=== PATIENT | male | born 1975 ===

== ENCOUNTER 2021-01-10 10:27 | Outpatient (REF) | payer OTHER, SELFPAY ==
[2021-01-10 10:31] LABS: MANUAL DIFF FLAG NO
[2021-01-10 11:00] LABS: Basophils Percent Auto 0.3 %; Eosinophils Absolute Auto 0.2 X10*3/uL; Eosinophils Percent Auto 2.6 %; Hematocrit 43.6 %; Hemoglobin 15.2 g/dl; Imm Gran Abs Auto 0.02 X10*3/uL (0.00-0.03); Imm Gran Pct Auto 0.3 % (0.0-0.4); Lymphocytes Absolute Auto 2.8 X10*3/uL; Lymphocytes Percent Auto 48.1 %; Mean Corpuscular HGB Conc 34.9 g/dl; Mean Corpuscular Hemoglobin 29.7 pg; Mean Corpuscular Volume 85.2 fL; Mean Platelet Volume 9.9 fL (9.4-12.4); Monocytes Absolute Auto 0.4 X10*3/uL; Monocytes Percent Auto 7.2 %; Neutrophils Absolute Auto 2.43 x10*3/uL; Neutrophils Percent Auto 41.5 %; Platelet Count 238 X10*3/uL; Red Blood Count 5.12 X10*6/uL; Red Cell Distribution Width 12.4 % (11.0-16.0); White Blood Count 5.9 X10*3/uL
[2021-01-10 11:24] LABS: Appearance Urine CLEAR; Color Urine YELLOW; Glucose Urine UA NEG (NEG); Leukocyte Esterase Urine NEG (NEG); Nitrite Urine NEG (NEG); Urine Blood NEG (NEG); Urine Ketones NEG (NEG); Urine Protein NEG (NEG-TRACE)
[2021-01-10 11:39] LABS: Alanine Aminotransferase 26 U/L; Albumin Level 4.4 g/dL; Alkaline Phosphatase 65 U/L; Anion Gap 11; Aspartate Amino Transferase 20 U/L; Bilirubin Total 0.6 mg/dL; Blood Urea Nitrogen 12 mg/dL; Calcium 9.4 mg/dL; Carbon Dioxide 28 mmol/L; Chloride 104 mmol/L; Cholesterol 204 mg/dL; Estimated Glomerular Filt Rate > 60; Glucose Fasting 127 mg/dL; HDL Cholesterol 27 mg/dL; LDL Cholesterol Calculated 123 mg/dl; Sodium 139 mmol/L; Total Protein 6.8 g/dL; Triglycerides 272 mg/dL
[2021-01-10 12:06] LABS: PSA,Total (Free>4and<10) 0.93 ng/mL
== END 2021-01-10 10:28 | disposition home or self-care (01) ==
LOC: HO.LNP 10:27
PROVIDERS: Visit Provider Internal Medicine
DX: Z00.00 Encounter for general adult medical examination without abnormal findings (principal); Z12.5 Encounter for screening for malignant neoplasm of prostate; I10 Essential (primary) hypertension
CPT/HCPCS: 80053; 80061; 81003; 84153; 85025

== ENCOUNTER 2021-04-25 10:45 | Outpatient (REF) | payer OTHER, SELFPAY ==
[2021-04-25 10:48] LABS: MANUAL DIFF FLAG NO
[2021-04-25 11:28] LABS: Basophils Percent Auto 0.4 %; Eosinophils Absolute Auto 0.2 X10*3/uL; Eosinophils Percent Auto 2.4 %; Hematocrit 44.9 %; Hemoglobin 15.2 g/dl; Imm Gran Abs Auto 0.01 X10*3/uL (0.00-0.03); Imm Gran Pct Auto 0.1 % (0.0-0.4); Lymphocytes Absolute Auto 2.9 X10*3/uL; Lymphocytes Percent Auto 43.3 %; Mean Corpuscular HGB Conc 33.9 g/dl; Mean Corpuscular Hemoglobin 29.3 pg; Mean Corpuscular Volume 86.7 fL; Mean Platelet Volume 9.9 fL (9.4-12.4); Monocytes Absolute Auto 0.5 X10*3/uL; Monocytes Percent Auto 6.6 %; Neutrophils Absolute Auto 3.2 x10*3/uL; Neutrophils Percent Auto 47.2 %; Platelet Count 239 X10*3/uL; Red Blood Count 5.18 X10*6/uL; Red Cell Distribution Width 12.4 % (11.0-16.0); White Blood Count 6.8 X10*3/uL
== END 2021-04-25 10:46 | disposition home or self-care (01) ==
LOC: HO.LNP 10:45
PROVIDERS: PCP Internal Medicine; Visit Provider Internal Medicine
DX: D72.820 Lymphocytosis (symptomatic) (principal)
CPT/HCPCS: 85025

== ENCOUNTER 2022-01-09 11:13 | Outpatient (REF) | payer OTHER, SELFPAY ==
[2022-01-09 11:18] LABS: MANUAL DIFF FLAG NO
[2022-01-09 11:39] LABS: Basophils Percent Auto 0.3 %; Eosinophils Absolute Auto 0.1 X10*3/uL; Eosinophils Percent Auto 1.9 %; Hemoglobin 14.7 g/dl; Imm Gran Abs Auto 0.02 X10*3/uL (0.00-0.03); Imm Gran Pct Auto 0.3 % (0.0-0.4); Lymphocytes Absolute Auto 2.8 X10*3/uL; Lymphocytes Percent Auto 39.4 %; Mean Corpuscular HGB Conc 34.2 g/dl; Mean Corpuscular Hemoglobin 29.3 pg; Mean Corpuscular Volume 85.8 fL; Mean Platelet Volume 9.7 fL (9.4-12.4); Monocytes Absolute Auto 0.5 X10*3/uL; Monocytes Percent Auto 6.6 %; Neutrophils Absolute Auto 3.6 x10*3/uL; Neutrophils Percent Auto 51.5 %; Platelet Count 243 X10*3/uL; Red Blood Count 5.01 X10*6/uL; Red Cell Distribution Width 12.8 % (11.0-16.0)
[2022-01-09 11:45] LABS: Appearance Urine Clear; Color Urine Yellow; Glucose Urine UA Negative (Negative); Leukocyte Esterase Urine Negative (Negative); Nitrite Urine Negative (Negative); PH 5.5 (5.0-9.0); Specific Gravity - Urine 1.025 (1.005-1.025); Urine Blood Negative (Negative); Urine Ketones Negative (Negative); Urine Protein Negative (Neg-Trace)
[2022-01-09 11:54] LABS: Alanine Aminotransferase 31 U/L; Albumin Level 4.4 g/dL; Alkaline Phosphatase 69 U/L; Anion Gap 14; Aspartate Amino Transferase 18 U/L; Bilirubin Total 0.5 mg/dL; Blood Urea Nitrogen 17 mg/dL; Calcium 9.1 mg/dL; Carbon Dioxide 26 mmol/L; Chloride 105 mmol/L; Cholesterol 211 mg/dL; Estimated Glomerular Filt Rate > 60; Glucose Fasting 135 mg/dL; HDL Cholesterol 35 mg/dL; LDL Cholesterol Calculated 135 mg/dl; Potassium 4.3 mmol/L; Sodium 141 mmol/L; Total Protein 6.9 g/dL; Triglycerides 205 mg/dL
[2022-01-09 12:06] LABS: Bacteria Urine None Seen (None Seen); Hyaline Casts Urine 0-2 /LPF (0-2); Squamous Epithelial Cell Urine 0-2 /HPF (0-2); WBC Urine 0-5 /HPF (0-5)
[2022-01-09 12:16] LABS: PSA,Total (Free>4and<10) 0.65 ng/mL
== END 2022-01-09 11:14 | disposition home or self-care (01) ==
LOC: HO.LNP 11:13
PROVIDERS: Visit Provider Internal Medicine
DX: Z00.00 Encounter for general adult medical examination without abnormal findings (principal); Z12.5 Encounter for screening for malignant neoplasm of prostate; I10 Essential (primary) hypertension; D72.820 Lymphocytosis (symptomatic)
CPT/HCPCS: 80053; 80061; 81001; 84153; 85025

== ENCOUNTER 2022-01-22 16:22 | Outpatient (REF) | payer OTHER, SELFPAY ==
[2022-01-22 17:40] LABS: Appearance Urine Clear; Color Urine Yellow; Glucose Urine UA Negative (Negative); Leukocyte Esterase Urine Negative (Negative); Nitrite Urine Negative (Negative); Specific Gravity - Urine 1.015 (1.005-1.025); Urine Blood Negative (Negative); Urine Ketones Negative (Negative); Urine Protein Negative (Neg-Trace)
[2022-01-22 19:01] LABS: Bacteria Urine None Seen (None Seen); Hyaline Casts Urine 0-2 /LPF (0-2); RBC Urine 0-2 /HPF (0-2); Squamous Epithelial Cell Urine 0-2 /HPF (0-2); WBC Urine 0-5 /HPF (0-5)
== END 2022-01-22 16:23 | disposition home or self-care (01) ==
LOC: HO.LNP 16:22
PROVIDERS: PCP Internal Medicine; Visit Provider Internal Medicine
DX: R31.9 Hematuria, unspecified (principal)
CPT/HCPCS: 81001; 87086

== ENCOUNTER 2023-03-01 10:46 | Outpatient (REF) | payer OTHER, SELFPAY ==
[2023-03-01 10:50] LABS: MANUAL DIFF FLAG NO
[2023-03-01 11:11] LABS: Basophils Percent Auto 0.6 % (0-2); Eosinophils Absolute Auto 0.2 X10*3/uL (0.0-0.4); Eosinophils Percent Auto 2.3 % (0-4); Hematocrit 43.6 % (42.0-52.0); Hemoglobin 15.1 g/dl (14.0-18.0); Imm Gran Abs Auto 0.02 X10*3/uL (0.00-0.03); Imm Gran Pct Auto 0.3 % (0.0-0.4); Lymphocytes Absolute Auto 1.7 X10*3/uL (1.2-4.9); Lymphocytes Percent Auto 24.8 % (20-40); Mean Corpuscular HGB Conc 34.6 g/dl (31.0-36.0); Mean Corpuscular Hemoglobin 30.1 pg (27.0-33.0); Mean Platelet Volume 9.9 fL (9.4-12.4); Monocytes Absolute Auto 0.5 X10*3/uL (0.1-1.2); Monocytes Percent Auto 6.6 % (2-11); Neutrophils Absolute Auto 4.5 x10*3/uL (2.0-8.3); Neutrophils Percent Auto 65.4 % (45-73); Platelet Count 221 X10*3/uL (160-400); Red Blood Count 5.01 X10*6/uL (4.60-5.80); Red Cell Distribution Width 12.6 % (11.0-16.0); White Blood Count 6.8 X10*3/uL (4.8-10.8)
[2023-03-01 11:20] LABS: Appearance Urine Clear; Color Urine Yellow; Glucose Urine UA Negative (Negative); Leukocyte Esterase Urine Negative (Negative); Nitrite Urine Negative (Negative); Specific Gravity - Urine 1.025 (1.005-1.025); Urine Blood Negative (Negative); Urine Ketones Negative (Negative); Urine Protein Negative (Neg-Trace)
[2023-03-01 11:23] LABS: Bacteria Urine None Seen (None Seen); Hyaline Casts Urine 0-2 /LPF (0-2); RBC Urine 0-2 /HPF (0-2); Squamous Epithelial Cell Urine 0-2 /HPF (0-2); WBC Urine 0-5 /HPF (0-5)
[2023-03-01 11:26] LABS: Alanine Aminotransferase 28 U/L (0-40); Albumin Level 4.4 g/dL (3.5-5.0); Alkaline Phosphatase 80 U/L (39-117); Anion Gap 11 (12-20); Aspartate Amino Transferase 20 U/L (5-37); Bilirubin Total 0.6 mg/dL (0.0-1.0); Blood Urea Nitrogen 15 mg/dL (9-16); Calcium 9.1 mg/dL (8.4-10.2); Carbon Dioxide 28 mmol/L (22-29); Chloride 104 mmol/L (96-108); Cholesterol 189 mg/dL (<200); Estimated Glomerular Filt Rate > 60; Glucose Fasting 130 mg/dL (60-99); HDL Cholesterol 31 mg/dL (>40); LDL Cholesterol Calculated 88 mg/dL (<100); Potassium 3.8 mmol/L (3.3-5.1); Sodium 139 mmol/L (135-145); Triglycerides 350 mg/dL (<150)
[2023-03-01 11:45] LABS: PSA,Total (Free>4and<10) 1.09 ng/mL (0.00-4.00)
== END 2023-03-01 10:47 | disposition home or self-care (01) ==
LOC: HO.LNP 10:46
PROVIDERS: Visit Provider Internal Medicine
DX: Z00.00 Encounter for general adult medical examination without abnormal findings (principal); Z12.5 Encounter for screening for malignant neoplasm of prostate; I10 Essential (primary) hypertension; D72.820 Lymphocytosis (symptomatic)
CPT/HCPCS: 80053; 80061; 81001; 84153; 85025

== ENCOUNTER 2024-04-17 12:38 | Outpatient (REF) | payer OTHER, SELFPAY ==
[2024-04-17 12:40] LABS: MANUAL DIFF FLAG NO
[2024-04-17 13:21] LABS: Basophils Percent Auto 0.3 % (0-2); Eosinophils Absolute Auto 0.1 X10*3/uL (0.0-0.4); Eosinophils Percent Auto 2.2 % (0-4); Hematocrit 43.7 % (42.0-52.0); Hemoglobin 15.1 g/dl (14.0-18.0); Imm Gran Abs Auto 0.02 X10*3/uL (0.00-0.03); Imm Gran Pct Auto 0.3 % (0.0-0.4); Lymphocytes Absolute Auto 2.8 X10*3/uL (1.2-4.9); Lymphocytes Percent Auto 45.9 % (20-40); Mean Corpuscular HGB Conc 34.6 g/dl (31.0-36.0); Mean Corpuscular Hemoglobin 29.7 pg (27.0-33.0); Mean Corpuscular Volume 85.9 fL (80.0-98.0); Mean Platelet Volume 9.8 fL (9.4-12.4); Monocytes Absolute Auto 0.4 X10*3/uL (0.1-1.2); Monocytes Percent Auto 7.3 % (2-11); Neutrophils Absolute Auto 2.7 x10*3/uL (2.0-8.3); Platelet Count 214 X10*3/uL (160-400); Red Blood Count 5.09 X10*6/uL (4.60-5.80)
--- OUTSIDE RECORDS SUMMARY | 2024-04-17 13:22 | XMS_ITS ---
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 language impairment, requiring support F84.0 Assessments Encounter Date Diagnosis (ICD Code) Assessment Notes Treatment Notes Treatment Clinical Notes Section Notes 03/19/2024 Autism spectrum disorder with accompanying intellectual disability without language impairment, requiring support (ICD-10 - F84.0) Plan Of Treatment Medication Medication Name Sig Start Date Stop Date Notes Abilify 5 MG 1 tablet Orally Once a day for 90 days Next Appt Details Provider Name:Breezy jacobsen, 04/23/2024 03:00:00 PM, [address] [facility] [address], Suite [facility], [place], [place], [phone], Progress Notes * EMELY EASTONDOB:1975 (48 yo M)Acc No.[id number]:03/19/2024 Patient:?EMELY EASTON :1975???Age:48 Y???Sex:Male Address:[address], [place], [address] * Refills? Refill Abilify Tablet, 5 MG, Orally, 90 Tablet, 1 tablet, Once a day, 90 days, Refills=3 * true * Date:? Generated for Kim louis/Saw/Dianeitting on:?04/17/2024 01:21 PM EST
--- OUTSIDE RECORDS SUMMARY | 2024-04-17 13:22 | XMS_ITS | Patient Health Record ---
Author Organization Breezy Zamora MD Address [address] [place], [place] [phone] Care Team Providers Care Baking Powder Mixer Name Role Phone Breezy Zamora Primary Care Provider [phone] Allergies Allergen (clinical drug ingredient) Drug/Non Drug Allergy documented on EMR Reaction Allergy Type Onset Date Status bees hornets wasps (uncoded) anaphylatic reaction Allergy Active Reason For Referral No Information Medications Medication SIG (Take, Route, Frequency, Duration) Notes Start Date End Date Status Lysine HCl 500 MG 1 tablet Orally Once a day for 30 day(s) Active Abilify 5 MG 1 tablet Orally Once a day for 90 days Active Orabase Active EpiPen 2-Sonido 0.3 MG/0.3ML as directed In jection daily for 2 days Active Acyclovir 400 mg one tab orally bid Active FLUoxetine HCl 20 MG 1 capsule Orally On ce a day for 30 day(s) Active Tadalafil 5 MG TAKE 1 TABLET BY SABRINA TH DAILY NEEDED for 30 Active Tamsulosin HCl 0.4 MG 1 capsule Orally O nce a day for 30 day(s) Active Lisinopril-hydroCHLOROthiaz nicci 10-12.5 MG take 1/2 tablet by mouth every day Orally Once a day for 90 days Active Omeprazole 20 MG 1 capsule 30 minutes before morning meal Orally Once a day Active ARIPiprazole 5 MG 1 tablet Orally Once a day for 30 day(s) Active LORazepam 0.5 MG 1 tablet at bedtime as needed Orally bid Active Immunizations Vaccine Route Administration Date Status Comme nts SARS-COV-2 Moderna Unknown 06/30/2020 Administered SARS-COV-2 Moderna Unknown 07/28/2020 Administered Fluarix Quadrivalent Unknown 12/22/2019 Administered TDaP Unknown 11/11/2015 Administered Fluarix Quadrivalent Unknown 12/11/2020 Administered SARS-COV-2 Moderna Unknown 02/04/2021 Administered Fluarix Quadrivalent Unknown 12/11/2021 Administered SARS-COV-2 Pfizer Unknown 12/06/2023 Administered [facility] Social History Tobacco Use: Social History Observation Description Date Details (start date - stop date) Never Smoker NA - NA Tobacco Use/Smoking Question Answer Notes Patient is a nonsmoker Additional Findings: Tobacco Non-User Cu rrent non-smoker, currently using no form of tobacco Alcohol Screen Question Answer Notes Did you have a drink contain ing alcohol in the past year? Yes How often did you have a dri nk containing alcohol in the past year? Monthly or less (1 point) How many drinks did you have on a typical day when you were drinking in the past year? 1 or 2 drinks (0 point) How often did you have 6 or more drinks on one occasion in the past year? Never (0 point) Points 1 Interpretation Negative Problems Problem Type SNOMED Code ICD Code Onset Dates Problem Status W/U Status Risk Notes Problem 24637899 Lymphocytosis (D72.820) Active confirm ed Problem 29632433 Essential hypert ension (I10) Active confirmed Problem 994612816 Erectile dysfunc tion, unspecified erectile dysfunction type (N52.9) Active confirmed Problem 556342654 Hypertriglycerid emia (E78.1) Active confirmed Problem 05431582 Reflux gastritis (K29.60) Active confirmed Problem 56920601 VSD (ventricular septal defect) (Q21.0) Active confirmed Problem 22527839 BREONNA (obstructive sleep apnea) (G47.33) Active confirmed Problem 44945218 Autism spectrum disorder with accompanying intellectual disability without language impairment, requiring support (F84.0) Active confirmed Problem 147357945 Malignant melano ma of torso excluding breast (C43.59) Active confirmed Vital Signs Blood pressure diastolic 80 mm Hg 10/24/2023 lubna ght is up 5 pounds since 04-16-23 Height 68 in 10/24/2023 weight is up 5 pounds since 2 Blood pressure systolic 124 mm Hg 10/24/2023 weig ht is up 5 pounds since 2-6-24 Weight 230 lbs 10/24/2023 weight is up 5 pounds since 04-16-23 BMI 34.97 kg/m2 10/24/2023 weight is up 5 pounds since 04-16-23 Encounters Encounter Location Date Provider Diagnosis Breezy Zamora MD [address] [place] [phone] 04/17/2024 Breezy Zamora Blood tests for routine general physical examination Z00.00 ; Essential hypertension I10 and Lymphocytosis D72.820 Breezy Zamora MD [address] [place] [phone] 10/24/2023 Breezy Zamora Malignant melanoma o f torso excluding breast C43.59 and Lymphadenopathy, axillary R59.0 Breezy Zamora MD [address] [place] [phone] 06/27/2023 Breezy Zamora MD [address] [place] [address] Drive [address] [place] [phone] 03/19/2024 Breezy Zamora Autism spectrum disorder with accompanying intellectual disability without language impairment, requiring support F84.0 Assessments Encounter Date Diagnosis (ICD Code) Assessment Notes Treatment Notes Treatment Clinical Notes Section Notes 04/17/2024 Blood tests for routine general physical examination (ICD-10 - Z00.00) 10/24/2023 Malignant melanoma of torso excluding breast (ICD-10 - C43.59) 10/24/2023 Lymphadenopathy, axillary (ICD-10 - R59.0) 03/19/2024 Autism spectrum disorder with accompanying intellectual disability without language impairment, requiring support (ICD-10 - F84.0) 04/17/2024 Essential hypertension (ICD-10 - I10) 04/17/2024 Lymphocytosis (ICD-10 - D72.820) Plan Of Treatment Pending Test Test Name Order Date US SOFT TISSUE 10/24/2023 Complete Blood Count Auto Diff Comprehensive [place]. Panel Fast Lipid Panel 04/17/2024 PSA,Total (Free>4and<10) 04/17/2024 UA ClnCatch+Micro w/rflx Cult 04/17/2024 Next Appt Details Provider Name:Breezy Faria ier, 04/23/2024 03:00:00 PM, [address], [address], [place], [place], [phone], Insurance Providers Payer Name Payer Address Payer Phone Subscriber Number Group Number Insured Name Patient Relationship to Insured Coverage Start Date Coverage End Date [address] [facility] [place] [phone] [id number] EMELY EASTON Self - patient is the insured [facility] [address] [place] [address] [id number] EMELY EASTON Self - patient is the insured Medical (General) History Medical History History ICD Code discussed need for colonoscopy and he wa nts to wait until 49
--- OUTSIDE RECORDS SUMMARY | 2024-04-17 13:22 | XMS_ITS ---
Author Organization Breezy Zamroa MD Address [address] [place], [place] [phone] Care Team Providers Care Auto Transport Driver Name Role Phone Breezy Zamora Primary Care Provider REASON FOR VISIT yearly fasting labs Encounters Encounter Location Date Provider Diagnosis Breezy Zamora MD [address] [place], [place] [phone] 04/17/2024 Breezy Zamora Blood tests for routine general physical examination Z00.00 ; Essential hypertension I10 and Lymphocytosis D72.820 Assessments Encounter Date Diagnosis (ICD Code) Assessment Notes Treatment Notes Treatment Clinical Notes Section Notes 04/17/2024 Blood tests for routine general physical examination (ICD-10 - Z00.00) 04/17/2024 Essential hypertension (ICD-10 - I10) 04/17/2024 Lymphocytosis (ICD-10 - D72.820) Plan Of Treatment Pending Test Test Name Order Date Complete Blood Count Auto Diff 5 Comprehensive [place]. Panel Fast 5 Lipid Panel 04/17/2024 PSA,Total (Free>4and<10) 04/17/2024 UA ClnCatch+Micro w/rflx Cult 04/17/2024 Next Appt Details Provider Name:Breezy jacobsen, 04/23/2024 03:00:00 PM, [address], [address], [place], [place], [phone], Progress Notes * AKIN EASTON:1975 (48 yo M)Acc No.[id number]:04/17/2024 Progress Note Patient:?EMELY EASTON Provider:?Breezy Zamora MD :1975???Age:48 Y???Sex:Male Aaron e:04/17/2024 Address:[address] [place] [address] , [place] [address] Subjective: * Chief Complaints: * ???1. Yearly fasting labs. * Medical History:? Objective: * Vitals:? Assessment: * Assessment: 1.?Blood tests for routine g eneral physical examination - Z00.00 (Primary)???2.?Essential hypertension - I10???3.?Lymphocytosis - D72.820??? Plan: * Treatment: 2.?Essential hypertension?LAB: Complete Blood Count Auto Diff ?LAB: Comprehensive [place]. Panel Fast ?LAB: Lipid Panel ?LAB: PSA,Total (Free>4and<10) ?LAB: UA ClnCatch+Micro w/rflx Cult 3.?Lymphocytosis?LAB: Complete Blood Count Auto Diff ?LAB: Comprehensive [place]. Panel Fast ?LAB: Lipid Panel ?LAB: PSA,Total (Free>4and<10) ?LAB: UA ClnCatch+Micro w/rflx Cult * Procedure Codes:?44820 VENIP UNCT, ROUTINE* * * The named appointment provid er may or may not be the originator of this progress note, and it is not deemed complete until electronically signed by the appointment provider. Sign off status: Pending * Provider:?Breezy Zamora MD Date:?0 04/17/2024 Generated for Kim louis/Saw/eTromariosmitting on:?04/17/2024 01:21 PM EST
--- OUTSIDE RECORDS SUMMARY | 2024-04-17 13:22 | XMS_ITS ---
Author Organization Breezy Zamora MD Address [address] [place] [address] [place] [phone] Care Team Providers Care Dinkey Operator Slag Name Role Phone Breezy Zamora Primary Care Provider [phone] REASON FOR VISIT must see US soft tissue Encounters Encounter Location Date Provider Diagnosis Breezy Zamora MD [address] [place] [address] [address] [place], [place] [phone] 11/08/2023 Breezy Zamora Plan Of Treatment Next Appt Details Provider Name:Breezy Faria ier, 04/23/2024 03:00:00 PM, [address] [place] [address], [address], [place], [place], [phone], Progress Notes * EMELY EASTONDOB:1975 (48 yo M)Acc No.[id number]:11/08/2023 Patient:?EMELY EASTON Provider:?Breezy Zamora MD :1975???Age:48 Y???Sex:Male Aaron e:11/08/2023 Address: [address], [place] Subjective: * Chief Complaints: * ???1. must see US soft tissu e. * Medical History:? Objective: * Vitals:? Assessment: Plan: * Treatment: * * The named appointment provid er may or may not be the originator of this progress note, and it is not deemed complete until electronically signed by the appointment provider. Sign off status: Pending * Provider:?Breezy Zamora MD Date:?0 11/08/2023 Generated for Kim louis/Saw/Brittanie on:?04/17/2024 01:21 PM EST
--- OUTSIDE RECORDS SUMMARY | 2024-04-17 13:22 | XMS_ITS | Clinical Summary ---
Author Organization [address] [place] [address] Address [address] [facility] [place] [address] Phone Care Team Providers Care Semiconductor Packages Platemaker Name Role Phone Breezy Zamora MD Primary Care Provider Unav ailable Allergies Active Allergy Reactions Criticality Noted Date Comments House Dust 04/23/2022 Other Anaphylaxis High 12/19/2020 Bees, hornets and wasps. [place] tree Medications Medication Sig Dispensed Refills Start Date End Date Status tamsulosin (FLOMAX) 0.4 mg 24 hr capsule Take 1 capsule by mouth daily. Take 30 mins after same meal every day. Active tadalafiL (CIALIS) 5 mg tablet Take 1 tablet (5 mg total) by mouth as needed. Active omeprazole (PriLOSEC) [address] capsule Take 1 Capsule by mouth as needed. Active multivitamin (MULTIPLE VITAMINS ORAL) Take by mouth daily. Active ARIPiprazole (ABILIFY) 5 mg tablet Take 1 tablet (5 mg total) by mouth 1 (one) time each day. Active EPINEPHrine (EpiPen 2-Sonido) 0.3 mg/0.3 mL injection Inject as directed. Active FLUoxetine (PROzac) 20 mg capsule Take 1 capsule (20 mg total) by mouth 1 (one) time each day. Active lisinopril-hydroCHLORO thiazide (PRINZIDE,ZESTORETIC) 10-12.5 mg per tablet Take 0.5 Tablets by mouth daily. Active LORazepam (ATIVAN) 0.5 mg tablet Take 1 tablet (0.5 mg total) by mouth 1 (one) time each day if needed for anxiety. Active lysine (L-Lysine) 500 mg tablet Take 1 tablet (500 mg total) by mouth 1 (one) time each day. Active Active Problems Problem Noted Date Diagnosed Date Essential hypertension 12/19/2020 Overview (12/21/2023): Last Assessment & Plan: Todat the systolic BP is ok. The diastolic is slightly increased. I did speak with him about his diet and about getting his weight down. VSD, muscular and membranous 12/19/2020 Overview (12/21/2023): Last Assessment & Plan: Does have a history of muscular ventricular septal defect. His last echocardiogram 2020 demonstrated that the LV chamber size and function were normal. There was a muscular ventricular septal defect.The right ventricular chamber size and function were normal. I am going to repeat his echocardiogram in 5 months. The area underneath his left arm is swollen and is erythematous and is fluctuant. I have asked him to call the surgeon because I am not sure if he needs to be antibiotic or not. His mother is going to do that. Encounters Date Type Department Care Team Description 03/05/2024 2:30 PM EST Office Visit [facility] Cardiology [facility] [address] [phone] Jj Adams MD VSD, muscular and membranous (Primary Dx); Essential hypertension 02/03/2024 3:30 PM EST Ancillary Procedure [facility] Cardiology [facility] [address] [phone] VSD, muscular and membranous; Essential hypertension from Last 3 Months Medical History Medical History Date Comments Autism spectrum disorder wit h accompanying intellectual disability without language impairment, requiring support DX:Autism spectrum disorder with accompanying intellectual disability without language impairment, requiring support Reflux gastritis DX:Reflux gastr itis Family History Medical History Relation Name Comments Diabetes Father Heart attack Maternal Grandfather Hypertension Maternal Grandfather Hypertension Maternal Grandmother Relation Name Status Comments Father Alive Maternal Grandfather Maternal Grandmother Mother Alive Sister Alive Social History Tobacco Use Types Packs/Day Years Used Date Smoking Tobacco: Never Smokeless Tobacco: Never Alcohol Use Standard Drinks/Week Comments Yes 0 (1 standard drink = 0.6 oz pur e alcohol) Sex and Gender Information Value Date Recorded Sex Assigned at Not on file Gender Identity Not on file Sexual Orientation Not on file Job Start Date Occupation Industry Not on file Not on file Not on file Obstetrics History Last Filed Vital Signs Vital Sign [place] Time Taken Comments Blood Pressure 130/74 03/05/2024 2:18 PM EST Pulse 102 03/05/2024 2:18 PM EST Temperature - - Respiratory Rate - - Oxygen Saturation 97% 03/05/2024 2:18 PM EST Inhaled Oxygen Concentration - - Weight 109 kg (240 lb) 03/05/2024 2:18 PM EST Height 172.7 cm (5' 8 ) 03/05/2024 2:18 PM EST Body Mass Index 36.49 03/05/2024 2:18 PM EST Plan of Treatment Upcoming Encounters Date Type Department Care Team (Late st Contact Info) Description 03/05/2025 3:00 PM EST Ancillary Procedure [facility] [address] [facility] [address] [place] [address] Health Maintenance Due Date Last Done Comments Pneumococcal Vaccine: Pediatrics (0 to 5 Years) and At-Risk Patients (6 to 64 Years) (1 of 2 - PCV) 1980 Hepatitis B Vaccines (1 of 3 - 19+ 3-dose series) 1993 Cholesterol Screening (Lipid Panel) 02/10/2022 Colorectal Cancer Screening: Colonoscopy 02/10/2022 Depression Screening 02/10/2022 HIV Screening 02/10/2022 Hepatitis C Screening 02/10/2022 Social Influencers of Health Screening 02/10/2022 Hypertension/CHF/CAD Annual BMP Blood Test 02/24/2022 DTaP,Tdap,and Td Vaccines (2 - Td or Tdap) 11/10/2025 11/11/2015 COVID-19 Vaccine Completed 12/06/2023, , 12/25/2021, Additional history exists Influenza Vaccine Completed 12/27/2023, , 12/11/2021, Additional history exists HIB Vaccines Aged Out No longer eligi ble based on patient's age to complete this topic HPV Vaccines Aged Out No longer eligi ble based on patient's age to complete this topic Hepatitis A Vaccines Aged Out No long er eligible based on patient's age to complete this topic IPV Vaccines Aged Out No longer eligi ble based on patient's age to complete this topic MMR Vaccines Aged Out No longer eligi ble based on patient's age to complete this topic Meningococcal ACWY Vaccine Aged Out N o longer eligible based on patient's age to complete this topic RSV Immunization Patients Under 20 months Aged Out No longer eligible based on patient's age to complete this topic Varicella Vaccines Aged Out No longer eligible based on patient's age to complete this topic Procedures Procedure Name Priority Date/Time Associated Diagnosis Comments ECG 12-LEAD Routine 03/05/2024 2:24 PM EST VSD, muscular and membranous Essential hypertension TRANSTHORACIC ECHOCARDIOGRAM (TTE) COMPLETE Routine 02/03/2024 4:11 PM EST VSD, muscular and membranous Essential hypertension from Last 3 Months Results * ECG 12 lead (03/05/2024 2:24 PM EST) Ventricular Rate ECG 102 BPM GEMUSE Atrial Rate 102 BPM GEMUSE P-R Interval 188 ms GEMUSE QRS Duration 92 ms GEMUSE Q-T Interval 356 ms GEMUSE QTc 463 ms GEMUSE P Wave [place] 61 degrees GEMUSE R [place] 34 degrees GEMUSE T [place] 41 degrees GEMUSE ECG Interpretation Sinus tachycardia with frequent Premature ventricular complexes Otherwise normal ECG When compared with ECG of 16-JAN-2011 11:59, No significant change was found Confirmed by Marquis ADAMS, JJ ([id number]) on 03/05/2024 2:44:02 PM GEMUSE 03/05/2024 2:24 PM EST 03/05/2024 2:44 PM EST Jj Adams MD ECG ORDERABLES GEMUSE * (ABNORMAL) TRANSTHORACIC ECHOCARDIOGRAM (TTE) COMPLETE (02/03/2024 4:11 PM EST) Left Atrium Major [place] 4.5 cm CV PACS LA Area Sys (A4C) 16 cm2 CV PACS RA Area 10.0 cm2 CV PACS RA 2D Volume 17 mL CV PACS Aortic Sinus Valsalva 3.7 cm CV PACS Ascending Aorta 3.3 cm CV PACS IVSD 0.9 0.6 - 1.0 cm CV PACS LVIDD 5.4 4.2 - 5.8 cm CV PACS LVIDS 3.3 2.5 - 4.0 cm CV PACS LVOT Diameter 2.5 cm CV PACS LVOT Mean [place] 0.6 m/s CV PACS LVOT Mean Grad 2 mmHg CV PACS LVOT Peak VTI 19.6 cm CV PACS LVOT Peak [place] 0.9 m/s CV PACS LVOT Peak Gradient 3 mmHg CV PACS LVPWD 0.8 0.6 - 1.0 cm CV PACS MV E' Tissue Velocity Lateral 9 cm/s CV PACS MV E' Tissue Velocity Septal 8 cm/s CV PACS LVOT Area 4.9 cm2 CV PACS LVOT Stroke Volume 96 mL CV PACS MV Deceleration [place] 4.8 m/s2 CV PACS E Wave Deceleration Time 187 119 - 242 ms CV PACS MV PHT 55 ms CV PACS MV Peak A [place] 0.68 m/s CV PACS MV Peak E [place] 0.90 m/s CV PACS MV Area PHT 4.0 cm2 CV PACS PV Acceleration Time 116 ms CV PACS RVOT Diameter 3.6 cm CV PACS RVOT VTI 9.3 cm CV PACS RVOT Peak [place] 0.4 m/s CV PACS RV Diastolic Basal Dimension 4.6(A) 2.5 - 4.1 cm CV PACS RVOT Area 10.2 10 - 24 cm2 CV PACS RVOT Stroke Volume 95 cm3 CV PACS Qp:Qs Ratio 0.98 CV PACS E/E' Ratio Septal 11 CV PACS E/E' Ratio Averaged 11 CV PACS Relative Wall Thickness ratio 0.30 CV PACS FS 39 % CV PACS LV Mass 2D 167 g CV PACS LVOT flow 294 mL/s CV PACS E/A Ratio 1.3 CV PACS E/E' Ratio Lateral 10 CV PACS BSA 2.26 m2 CV PACS LVIDD Index 2.47 cm/m2 CV PACS LVIDS Index 1.51 cm/m2 CV PACS LV Mass Index 2D 76 50 - 102 g/m2 CV PACS LVOT Stroke Index 44 mL/m2 CV PACS RA 2D Volume Index 8(A) 18 - 32 mL/m2 CV PACS Ascending Aorta Index 1.51 cm/m2 CV PACS Anatomical Region Laterality Modality Ultrasound Narrative 02/04/2024 1:03 PM EST ?Left ventricle cavity size is normal. Left ventricular systolic function is in the normal range with an ejection fraction in the 55-70% range. ?No regional LV wall motion abnormalities noted. ?There appears to be an apical muscular VSD with [id number] flow. ??RV size and function remains normal. ??This has been noted in past echoes. ?Left ventricle wall thickness is normal. ?Right ventricle cavity is mildly enlarged. Right ventricular systolic function is normal. ?No significant valvular abnormalities. Left Ventricle Left ventricle cavity size is normal. Wall thickness is normal. Systolic function is normal with an ejection fraction in the 55-70% range. Muscular VSD is present at the apex. Normal QpQs There are no regional LV wall motion abnormalities. There is no diastolic dysfunction. Right Ventricle Right ventricle cavity is mildly dilated. Right ventricular end-systolic volume is mildly increased. Systolic function is normal. Left Atrium Left atrium cavity size is normal. Right Atrium Right atrium cavity is normal. IVC/SVC RA pressures is estimated to be 8 mmHg (IVC diameter <21 mm and decreases <50% during inspiration). Mitral Valve Mitral valve structure is normal. There is trace regurgitation. There is no evidence of mitral valve stenosis. Tricuspid Valve The leaflets are not thickened and exhibit normal excursion. There is trace regurgitation. Aortic Valve The aortic valve is trileaflet. There is no regurgitation or stenosis. Pulmonic Valve The pulmonic valve was not well visualized. Pulmonic valve structure is normal. No significant pulmonic valve regurgitation. Ascending Aorta The aorta appears normal in size. Pericardium Pericardium appears normal. Study Details Overall the study quality was adequate. Cardiac history: VSD. Prior Study There is a prior study available for comparison that was performed on 09/20/2022. Wall Scoring Baseline Score Index: 1.00 The left ventricular wall motion is normal. Jj Adams MD CV ECHO PROCEDURES from Last 3 Months Care Teams [employer]iconductor Packages Platemaker Relationship Specialty Start Date End Date Breezy Zamora MD [address] [place] [address] PCP - General Internal Medicine 02/14/21
[2024-04-17 13:30] LABS: Appearance Urine Clear; Color Urine Yellow; Glucose Urine UA Negative (Negative); Leukocyte Esterase Urine Negative (Negative); Nitrite Urine Negative (Negative); Specific Gravity - Urine 1.025 (1.005-1.025); Urine Blood Negative (Negative); Urine Ketones Negative (Negative); Urine Protein Negative (Neg-Trace)
[2024-04-17 13:36] LABS: Bacteria Urine None Seen (None Seen); Hyaline Casts Urine 0-2 /LPF (0-2); RBC Urine 0-2 /HPF (0-2); Squamous Epithelial Cell Urine 0-2 /HPF (0-2); WBC Urine 0-5 /HPF (0-5)
[2024-04-17 13:37] LABS: Alanine Aminotransferase 37 U/L (0-40); Albumin Level 4.4 g/dL (3.5-5.0); Alkaline Phosphatase 72 U/L (39-117); Anion Gap 15 (12-20); Aspartate Amino Transferase 29 U/L (5-37); Bilirubin Total 0.5 mg/dL (0.0-1.0); Blood Urea Nitrogen 15 mg/dL (9-16); Calcium 9.4 mg/dL (8.4-10.2); Carbon Dioxide 26 mmol/L (22-29); Chloride 103 mmol/L (96-108); Cholesterol 209 mg/dL (<200); Estimated Glomerular Filt Rate > 60; Glucose Fasting 139 mg/dL (60-99); HDL Cholesterol 30 mg/dL (>40); LDL Cholesterol Calculated 106 mg/dL (<100); Potassium 3.9 mmol/L (3.3-5.1); Sodium 140 mmol/L (135-145); Total Protein 7.3 g/dL (6.5-8.0); Triglycerides 368 mg/dL (<150)
[2024-04-17 13:50] LABS: PSA,Total (Free>4and<10) 1.07 ng/mL (0.00-4.00)
== END 2024-04-17 12:39 | disposition home or self-care (01) ==
LOC: HO.LNP 12:38
PROVIDERS: Visit Provider Internal Medicine
DX: Z00.00 Encounter for general adult medical examination without abnormal findings (principal); I10 Essential (primary) hypertension; D72.820 Lymphocytosis (symptomatic); Z12.5 Encounter for screening for malignant neoplasm of prostate
CPT/HCPCS: 80053; 80061; 81001; 84153; 85025